=== PATIENT | male | born 1970 | race African-American/Black ===

== ENCOUNTER 2018-10-01 22:00 | Emergency (ER) | payer OTHER ==
[~2018-10-01] VITALS: Ht 170.2 cm; Wt 74.8 kg
[2018-10-01 22:05] VITALS: BP 129/93
[2018-10-01] MEDS ORDERED: ELIMITE60 GM TOP (22:58)
== END 2018-10-01 23:09 | disposition home or self-care (01) ==
LOC: ER 22:00
DX: L30.9 Dermatitis, unspecified (principal); F17.210 Nicotine dependence, cigarettes, uncomplicated

== ENCOUNTER 2018-10-25 09:17 | Emergency (ER) | payer OTHER ==
[~2018-10-25] VITALS: Ht 165.1 cm; Wt 73.9 kg
[~2018-10-25 09:17] MED LIST: ELIMITE60 GM TOP
[2018-10-25] MEDS ORDERED: TRIAMCINOLONE A80 G2 TOP (09:46)
[2018-10-25 10:00] VITALS: BP 165/93
== END 2018-10-25 10:01 | disposition home or self-care (01) ==
LOC: ER 09:17
DX: L30.9 Dermatitis, unspecified (principal); F17.210 Nicotine dependence, cigarettes, uncomplicated

== ENCOUNTER 2018-10-28 22:45 | Emergency (ER) | payer OTHER ==
[~2018-10-28] VITALS: Ht 165.1 cm; Wt 63.5 kg
[~2018-10-28 22:45] MED LIST changes: +TRIAMCINOLONE A80 G2 TOP
[2018-10-28 22:48] VITALS: BP 134/101
[2018-10-28] MEDS ORDERED: TRIAMCINOLONE A80 G2 TOP (23:20)
== END 2018-10-29 00:09 | disposition home or self-care (01) ==
LOC: ER 22:45
DX: L30.9 Dermatitis, unspecified (principal); F17.210 Nicotine dependence, cigarettes, uncomplicated

== ENCOUNTER 2018-11-06 17:52 | Emergency (ER) | payer OTHER ==
[~2018-11-06] VITALS: Ht 165.1 cm; Wt 81.7 kg
[2018-11-06] MEDS ORDERED: ANTI-ITCH28 G1 TOP (18:06)
== END 2018-11-06 18:13 | disposition home or self-care (01) ==
LOC: ER 17:52
DX: L30.9 Dermatitis, unspecified (principal); F17.210 Nicotine dependence, cigarettes, uncomplicated; F20.0 Paranoid schizophrenia; F31.9 Bipolar disorder, unspecified; F90.9 Attention-deficit hyperactivity disorder, unspecified type

== ENCOUNTER 2018-11-25 15:04 | Emergency (ER) | payer OTHER ==
[~2018-11-25] VITALS: Ht 182.9 cm; Wt 81.7 kg
[~2018-11-25 15:04] MED LIST changes: +ANTI-ITCH28 G1 TOP
[2018-11-25] MEDS ORDERED: HYDROCORTISON28.4 G5 TOP (15:31)
[2018-11-25 16:01] VITALS: BP 140/84
== END 2018-11-25 16:01 | disposition home or self-care (01) ==
LOC: ER 15:04
DX: L30.9 Dermatitis, unspecified (principal); F17.210 Nicotine dependence, cigarettes, uncomplicated

== ENCOUNTER 2018-12-30 16:20 | Emergency (ER) | payer OTHER ==
[~2018-12-30] VITALS: Ht 165.1 cm; Wt 72.6 kg
[~2018-12-30 16:20] MED LIST changes: +HYDROCORTISON28.4 G5 TOP
[2018-12-30 16:21] VITALS: BP 131/93
[2018-12-30] MEDS ORDERED: ULTRAM 50MG TAB50 MG PO (16:40)
[2018-12-30] MEDS ORDERED: MOBIC7.5 MG PO (16:49)
== END 2018-12-30 17:38 | disposition home or self-care (01) ==
LOC: ER 16:20
DX: M54.6 Pain in thoracic spine (principal); M25.512 Pain in left shoulder; M25.511 Pain in right shoulder; F17.210 Nicotine dependence, cigarettes, uncomplicated

== ENCOUNTER 2020-01-18 10:48 | Emergency (ER) | payer OTHER ==
[~2020-01-18] VITALS: Ht 165.1 cm; Wt 81.7 kg
[~2020-01-18 10:48] MED LIST changes: +MOBIC7.5 MG PO; +ULTRAM 50MG TAB50 MG PO
[2020-01-18 10:49] VITALS: BP 166/103
[2020-01-18] MEDS ORDERED: TRIAMCINOLONE A80 G2 TOP (10:55)
== END 2020-01-18 11:30 | disposition home or self-care (01) ==
LOC: ER 10:48
DX: L30.9 Dermatitis, unspecified (principal); J45.909 Unspecified asthma, uncomplicated; F17.210 Nicotine dependence, cigarettes, uncomplicated